=== PATIENT | female | born 1990 | race Caucasian/White ===

== ENCOUNTER 2019-02-01 02:58 | Emergency (ER) | payer MEDICAID ==
[2019-02-01] MEDS ORDERED: MAG HYDROX/AL HYDROX/SIMETH 30 ML UDCUP PO ONE (03:26)
[2019-02-01] MEDS ORDERED: LIDOCAINE 2% VISCOUS 15 ML UDCUP PO ONE ×2 (03:26→03:45)
--- NOTE | 2019-02-01 03:26 | EDPHY ---
H & P Stated Complaint: Severe epigastric pain Time Seen by Provider: 02/01/19 03:13 HPI/ROS: CC: epigastric pain HPI: This 28-year-old female with past medical history including "heartburn" presents to the emergency department complaining of severe epigastric pain that woke her from her sleep approximately 2 hr prior to arrival. She tried a bath, changing positions and drinking water without relief. It was 10/10 on the pain scale at onset and currently is 8/10. She felt fine prior to going to bed last evening. She had no prior episodes of this sort and it does not feel like her symptoms of heartburn. Lying flat or sitting forward increases her pain. Staying still helps. She denies fever, chills, nausea, vomiting, chest pain, back pain, dysuria, constipation, or diarrhea. Her last bowel movement was today. She had a lap gamal in 2011.The 1st day of her last menstrual period was January 09, 2018. She is 4 para 3 (A1). She has a Mirena IUD in place. REVIEW OF SYSTEMS: Constitutional: No fever, no chills. Eyes: No discharge. ENT: No sore throat. Respiratory: No cough, no shortness of breath. Cardiac: No chest pain, no palpitations. Gastrointestinal: No vomiting. Genitourinary: No hematuria. Musculoskeletal: No back pain. Skin: No rashes. Neurological: No headache. Source: Patient - Personal History LMP (Females 10-55): 22-28 Days Ago Current Tetanus/Diphtheria Vaccine: Yes Current Tetanus Diphtheria and Acellular Pertussis (TDAP): Yes - Medical/Surgical History PMH: PMH: "Heartburn" PSH: Lap gamal; IUD FH: Mother - Hernandez's esophagus; father unknown. Allergies: Prednisone-full body rash; Reglan causes agitation. She currently does not have a primary care provider as they just moved here from [place]. Hx Asthma: No Hx Chronic Respiratory Disease: No Hx Diabetes: No Hx Cardiac Disease: No Hx Renal Disease: No Hx Cirrhosis: No Hx Alcoholism: No Hx HIV/AIDS: No Hx Splenectomy or Spleen Trauma: No Other PMH: Lap gamal - Social History Smoking Status: Never smoked Additional Social History: . 4 para 3 (A1). Denies tobacco use, denies alcohol use, smokes occasional marijuana with her last use being yesterday. - Physical Exam Exam: General Appearance: Alert, moderate to severe distress. Eyes: Pupils equal and round no pallor or injection. ENT, Mouth: Mucous membranes are moist. No erythema or exudate. Neck: Supple, nontender. No JVD. Respiratory: There are no retractions, lungs are clear to auscultation. Cardiovascular: Regular rate and rhythm. Gastrointestinal: Abdomen is soft moderate tenderness over the epigastrium and LUQ, no pulsatile masses, bowel sounds present. Neurological: Awake and alert, sensory and motor exams grossly normal. Skin: Warm and dry, no rashes. Musculoskeletal: No calf tenderness or swelling. Extremities are symmetrical, full range of motion. Psychiatric: Patient is oriented X 3, there is no agitation. DIFFERENTIAL DIAGNOSIS: After history and physical exam differential diagnosis was considered for but not limited to and in no particular order: Pancreatitis , gastritis, peptic ulcer disease, outflow tract obstruction, bowel perforation , constipation, ileus, volvulus, bowel obstruction, UTI, ectopic , abdominal aortic aneurysm Constitutional: Initial Vital Signs Temperature (C) 97.9 F 02/01/19 03:03 Heart Rate 76 02/01/19 03:03 Respiratory Rate 18 02/01/19 03:03 Blood Pressure 145/84 H 02/01/19 03:03 O2 Sat (%) 97 02/01/19 03:03 O2 Delivery Mode Room Air Allergies/Adverse Reactions: metoclopramide [From Reglan] Allergy (Verified 02/01/19 03:06) prednisone Allergy (Verified 02/01/19 03:06) Home Medications: Medication Instructions Recorded Omeprazole 02/01/19 Medical Decision Making - Diagnostics Imaging: I viewed and interpreted images myself ED Course/Re-evaluation: The patient was seen and examined. Vital signs reviewed. No prior records were available for review. Her CBC showed a slightly elevated white blood cell count at 12.6. No left shift. Comprehensive metabolic panel was normal. Lipase was normal. Urine showed 2+ blood and was sent to the main lab for microscopic which showed 1-3 RBCs/1-3WBCs. Urine negative. Two views of the abdomen showed no free air under the diaphragm. Normal gastric air bubble. Scattered air-fluid levels and a moderate amount of stool in the transverse and descending colon. A GI cocktail did not relieve her symptoms. She was given 15mg of Toradol IVP and the pain only came down to a 7/10. She was offered a CT scan of her abdomen and pelvis which she declined at this time. Her pain improved with Dilaudid 0.5 mg IV push. She was sent home with a bottle of Mag citrate to drink 1/2 when she gets home and if no result the other half in 12 hr. She will return to the emergency room if her symptoms persist, change, or worsen as discussed. Currently her symptoms and workup seem consistent with constipation and possibly a mild ileus. - Data Points Laboratory Results: 02/01/19 02/01/19 02/01/19 03:11 03:05 03:05 POC Sodium 140 mEq/L mEq/L (135-145) POC Potassium 3.9 mEq/L mEq/L (3.3-5.0) POC Chloride 101.0 mEq/L mEq/L (97-110) POC Total CO2 27 mEq/L mEq/L (22-31) POC BUN 13 mg/dL mg/dL (7-23) POC Creatinine 0.8 mg/dL mg/dL (0.6-1.0) POC Glucose 98 mg/dL mg/dL (70-100) POC Calcium 9.5 mg/dL mg/dL (8.5-10.4) POC Total Bilirubin 0.7 mg/dL mg/dL (0.1-1.4) POC AST 22 IU/L IU/L (14-46) POC ALT 15 IU/L IU/L (9-52) POC Alk Phosphatase 71 IU/L IU/L (38-126) POC Total Protein 7.6 g/dL g/dL (6.3-8.2) POC Albumin 3.7 g/dL g/dL (3.5-5.0) Lipase Pending Urine RBC Pending Urine WBC Pending Ur Epithelial Cells Pending Medications Given: Discontinued Medications Al Hydroxide/Mg Hydroxide (Maalox Susp) 30 ml PO EDNOW ONE Stop: 02/01/19 03:27 Last Admin: 02/01/19 03:52 Dose: 30 ml Ketorolac Tromethamine (Toradol) 15 mg IVP EDNOW ONE Stop: 02/01/19 04:03 Last Admin: 02/01/19 04:05 Dose: 15 mg Lidocaine (Lidocaine 2% Viscous) 5 ml PO EDNOW ONE Stop: 02/01/19 03:27 Last Admin: 02/01/19 03:39 Dose: Not Given Lidocaine (Lidocaine 2% Viscous) 15 ml PO EDNOW ONE Stop: 02/01/19 03:46 Last Admin: 02/01/19 03:52 Dose: 15 ml Magnesium Citrate (Magnesium Citrate) 300 ml PO ONCE ONE Stop: 02/01/19 03:56 Last Admin: 02/01/19 04:06 Dose: 300 ml Point of Care Test Results: CBC CBC Collection Date 02/01/19 CBC Collection Time 03:05 WBC 12.59 RBC 4.81 HGB 14.9 HCT 43.8 PLT 343 Neut # 9.11 Neut 72.3 LYMPH # 2.22 LYMPH 17.6 MCV 91.1 Chemistry 02/01/19 03:11 POC Sodium 140 mEq/L mEq/L (135-145) POC Potassium 3.9 mEq/L mEq/L (3.3-5.0) POC Chloride 101.0 mEq/L mEq/L (97-110) POC Total CO2 27 mEq/L mEq/L (22-31) POC BUN 13 mg/dL mg/dL (7-23) POC Creatinine 0.8 mg/dL mg/dL (0.6-1.0) POC Glucose 98 mg/dL mg/dL (70-100) POC Calcium 9.5 mg/dL mg/dL (8.5-10.4) POC Total Bilirubin 0.7 mg/dL mg/dL (0.1-1.4) POC AST 22 IU/L IU/L (14-46) POC ALT 15 IU/L IU/L (9-52) POC Alk Phosphatase 71 IU/L IU/L (38-126) POC Total Protein 7.6 g/dL g/dL (6.3-8.2) POC Albumin 3.7 g/dL g/dL (3.5-5.0) Urine Collection Date 02/01/19 Collection Time 03:13 HCG Results Negative Urine Dip Collection Date 02/01/19 Collection Time 03:13 Specific [place] (1.002-1.030) 1.030 PH (5.0-7.5) 6.0 Leukocytes (Negative) Negative Nitrites (Negative) Negative Protein (Negative) Negative Glucose (Negative) Negative Ketones (Negative) Negative Urobilnogen (0.2-1.0 EU) 0.2 Bilirubin (Negative) Negative Blood (Negative) 2+ Departure - Departure Disposition: Home, Routine, Self-Care Clinical Impression: Epigastric pain Condition: Good Instructions: Epigastric Pain (ED), Constipation (DC), Magnesium Citrate (By mouth) Additional Instructions: Drink 1/2 the bottle of Mag citrate when you get home. If you do not pass stool , then drink the other half of the bottle in 12 hr. Return to the emergency room if the pain persists, symptoms change, or symptoms worsen. I have also given you the name of a primary care provider you may follow up with in the future. Referrals: Mary Bhatti MD [Medical Doctor] - As per Instructions
[2019-02-01] MEDS ORDERED: MAGNESIUM CITRATE 300 ML BOTTLE PO ONE (03:55)
[2019-02-01 04:01] VITALS: BP 106/63
[2019-02-01] MEDS ORDERED: KETOROLAC 15 MG/1 ML SDV IVP ONE (04:02)
[2019-02-01] MEDS ORDERED: HYDROmorphONE/DILAUDID 2 MG/ML INJ IVP ONE (04:26)
== END 2019-02-01 04:50 | disposition home or self-care (01) ==
LOC: CED 02:58
DX: R10.13 Epigastric pain (principal)
CPT/HCPCS: 74019-PO; 80053-ER; 81025-ER; 85025-QW-ER; 96374-ER; 96375-ER; 99284-ER; J1170; J1885